=== PATIENT | female | born 1950 | race African-American/Black ===

== ENCOUNTER 2016-11-03 14:15 | Emergency (ER) | payer MEDICARE, MEDICAID ==
[~2016-11-03] VITALS: Ht 162.6 cm; Wt 68.9 kg
[2016-11-03 14:26] VITALS: BP 115/79
[2016-11-03] MEDS ORDERED: NKM (14:30)
[2016-11-03] MEDS ORDERED: Aspirin Baby 81mg ORAL ONE (14:45)
--- NOTE | 2016-11-03 14:48 | Emergency Room Report ---
History of Present Illness General Chief Complaint: Pain Source: Patient Present Illness HPI Patient is a 66-year-old female presented after increased left leg pain. Patient reported having increased pain to the left thigh. Pain is worse with movement. She denied any fever or recent trauma. She stated that she had gradual onset of symptoms over the last 3-4 days. Pain was worsened with supine position. She reported having no recent vomiting or diarrhea. She states that she is a smoker. She denied prior history of diabetes. Allergies: Coded Allergies: No Known Allergies (Unverified , 11/03/16) Patient History Reviewed Nursing Documentation: PMH: Agreed, PSxH: Agreed Nursing Documentation-PMH Past Medical History: No Stated History Physical Exam Vital Signs Date Time Temp Pulse Resp B/P Pulse Ox O2 Delivery O2 Flow Rate FiO2 11/03/16 14:26 97.7 14 115/79 99 11/03/16 14:26 94 Medical Decision Making Diagnostic Impression: Primary Impression: Anemia ER Course Patient presented for extremity pain. Differential diagnosis included but was not limited to fracture, contusion, vascular insufficiency, aortic aneurysm, cellulitis.Because of complexity of patient's case laboratory testing and imaging studies were ordered. The patient appears to have good perfusion to her extremities. Vascular ultrasound was ordered to evaluate for possible arterial insufficiencyThe arterial duplex studies showed adequate flow to both lower extremities. Patient noted to have anemia on laboratory testing. Patient was advised to take iron pills as prescribed. She is given prescription for acid blockers. Patient does not appear to have any acute bleeding at this time. Labs Test 11/03/16 14:57 11/03/16 15:05 White Blood Count 10.0 K/UL (4.8-10.8) Red Blood Count 4.12 M/UL (4.20-5.40) Hemoglobin 8.2 G/DL (12.0-16.0) Hematocrit 29.8 % (37.0-47.0) Mean Corpuscular Volume 72 FL (80-99) Mean Corpuscular Hemoglobin 20.0 PG (27.0-31.0) Mean Corpuscular Hemoglobin Concent 27.6 G/DL (32.0-36.0) Red Cell Distribution Width 18.9 % (11.6-14.8) Platelet Count 648 K/UL (150-450) Mean Platelet Volume 5.3 FL (6.5-10.1) Neutrophils (%) (Auto) 54.2 % (45.0-75.0) Lymphocytes (%) (Auto) 36.2 % (20.0-45.0) Monocytes (%) (Auto) 7.1 % (1.0-10.0) Eosinophils (%) (Auto) 1.1 % (0.0-3.0) Basophils (%) (Auto) 1.4 % (0.0-2.0) Prothrombin Time 10.2 SEC (9.30-11.50) Prothromb Time International Ratio 1.0 (0.9-1.1) Activated Partial Thromboplast Time 26 SEC (23-33) Sodium Level 137 mEQ/L (135-145) Potassium Level 3.6 mEQ/L (3.4-4.9) Chloride Level 97 mEQ/L (98-107) Carbon Dioxide Level 23 mEQ/L (20-30) Anion Gap 17 (5-15) Blood Urea Nitrogen 12 mg/dL (7-23) Creatinine 0.7 mg/dL (0.5-0.9) Estimat Glomerular Filtration Rate > 60 mL/min (>60) Glucose Level 101 mg/dL (74-106) Calcium Level 9.7 mg/dL (8.6-10.2) Total Bilirubin 0.8 mg/dL (0.0-1.2) Aspartate Amino Transf (AST/SGOT) 32 U/L (5-40) Alanine Aminotransferase (ALT/SGPT) 14 U/L (3-33) Alkaline Phosphatase 113 U/L (35-104) Total Protein 7.7 g/dL (6.6-8.7) Albumin 4.2 g/dL (3.5-5.2) Globulin 3.5 g/dL Albumin/Globulin Ratio 1.2 (1.0-2.7) Urine Color Yellow Urine Appearance Clear Urine pH 5 (4.5-8.0) Urine Specific [place] 1.020 (1.005-1.035) Urine Protein Negative (NEGATIVE) Urine Glucose (UA) Negative (NEGATIVE) Urine Ketones Negative (NEGATIVE) Urine Occult Blood 1+ (NEGATIVE) Urine Nitrite Positive (NEGATIVE) Urine Bilirubin Negative (NEGATIVE) Urine Urobilinogen Normal MG/DL (0.0-1.0) Urine Leukocyte Esterase 2+ (NEGATIVE) Urine RBC 2-4 /HPF (0 - 2) Urine WBC 5-10 /HPF (0 - 2) Urine Squamous Epithelial Cells Few /LPF (NONE/OCC) Urine Bacteria Moderate /HPF (NONE) Last Vital Signs Date Time Temp Pulse Resp B/P Pulse Ox O2 Delivery O2 Flow Rate FiO2 11/03/16 14:26 97.7 94 14 115/79 99 Status: improved Disposition: HOME, SELF-CARE Condition: Stable Scripts Famotidine (PEPCID) 20 Mg Tablet 20 MG ORAL DAILY, #7 TAB 0 Refills Prov: Donte Romo 11/03/16 Ferrous Sulfate* (FERROUS SULFATE*) 325 Mg Tablet 325 MG ORAL DAILY, #30 TAB 0 Refills Prov: Donte Romo 11/03/16 Donte Romo Nov 03, 2016 14:48
[2016-11-03 15:09] LABS: BASOPHILS % (AUTO) 1.4 % (0.0-2.0); EOSINOPHILS % (AUTO) 1.1 % (0.0-3.0); LYMPHOCYTES % (AUTO) 36.2 % (20.0-45.0); MEAN CORPUSCULAR HGB CONC 27.6 G/DL (32.0-36.0); MEAN CORPUSCULAR VOLUME 72 FL (80-99); MEAN PLATELET VOLUME 5.3 FL (6.5-10.1); MONOCYTES % (AUTO) 7.1 % (1.0-10.0); NEUTROPHILS % (AUTO) 54.2 % (45.0-75.0); PLATELET COUNT 648 K/UL (150-450); RED BLOOD COUNT 4.12 M/UL (4.20-5.40); RED CELL DISTRIBUTION WIDTH 18.9 % (11.6-14.8)
[2016-11-03 15:17] LABS: APPEARANCE,URINE CLEAR; KETONES,URINE NEGATIVE (NEGATIVE); LEUKOCYTE ESTERASE ,URINE 2+ (NEGATIVE); NITRITE,URINE POSITIVE (NEGATIVE); PH,URINE 5 (4.5-8.0); PROTEIN,URINE NEGATIVE (NEGATIVE); UROBILINOGEN,URINE NORMAL MG/DL (0.0-1.0)
[2016-11-03 15:20] LABS: PROTHROMBIN TIME 10.2 SEC (9.30-11.50)
[2016-11-03 15:25] LABS: ALANINE AMINOTRANSFERASE 14 U/L (3-33); ALBUMIN/GLOBULIN RATIO 1.2 (1.0-2.7); ANION GAP 17 (5-15); ASPARTATE AMINO TRANSFERASE 32 U/L (5-40); CALCIUM 9.7 mg/dL (8.6-10.2); CARBON DIOXIDE 23 mEQ/L (20-30); CHLORIDE 97 mEQ/L (98-107); CREATININE 0.7 mg/dL (0.5-0.9); GLOMERULAR FILTRATION RATE > 60 mL/min (>60); HEMOLYSIS 0; POTASSIUM 3.6 mEQ/L (3.4-4.9); SODIUM 137 mEQ/L (135-145); TOTAL PROTEIN 7.7 g/dL (6.6-8.7)
[2016-11-03 15:32] LABS: BACTERIA,URINE MODERATE /HPF; SQUAMOUS EPITHELIAL CELL,UR FEW /LPF (NONE/OCC)
[2016-11-03] MEDS ORDERED: FERROUS SULFAT325 MG ORAL (16:25)
[2016-11-03] MEDS ORDERED: PEPCID20 MG ORAL (16:43)
[2016-11-03 17:04] VITALS: BP 130/75
[2016-11-03 17:06] VITALS: BP 130/75
--- NOTE | 2016-11-03 23:38 | Diagnostic Imaging Report ---
APPROVED REPORT CPT Code: 53395 Symptoms Comments: Left leg pain BILATERAL: Common femoral artery waveform analysis is within normal limits at rest. Color flow duplex sonography reveals patency of the superficial femoral, popliteal, and tibial arteries, there is no evidence of stenosis or occlusion within these segments. Doppler tibial artery waveform analysis is within normal limits, bilaterally. There is no evidence of significant arterial occlusive disease, bilaterally.
[2016-11-04] MEDS ORDERED: TYLENOL EXTRA500 MG ORAL (16:09)
== END 2016-11-03 17:06 | disposition home or self-care (01) ==
LOC: EMR 14:45
DX: D64.9 Anemia, unspecified (principal); M79.662 Pain in left lower leg
CPT/HCPCS: 36415; 80053; 81001; 82962; 85025; 85610; 85730; 87086; 87181; 93925; 99284

== ENCOUNTER 2019-09-24 21:09 | Emergency (ER) | payer MEDICAID, MEDICARE, OTHER ==
[~2019-09-24] VITALS: Ht 160 cm; Wt 63.5 kg
[~2019-09-24 21:09] MED LIST: FERROUS SULFAT325 MG ORAL; NKM; PEPCID20 MG ORAL; TYLENOL EXTRA500 MG ORAL
[2019-09-24 21:20] VITALS: BP 99/67
--- NOTE | 2019-09-24 21:20 | NUR ---
ED Nurse Note: ambulated to ed c/o abnormal labs (low h&H) seen by primary md 09/23/19. nausea vomitting and general weakness.. ao4. nad. vss. amulates with steady gait. changed into gown; attached to monitor; safety measures met.
[2019-09-24] MEDS ORDERED: Pantoprazole Inj IVP ONE (21:30)
--- NOTE | 2019-09-24 21:59 | NUR ---
ED Nurse Note: iv access established. blood collected; sent down to lab. unable to collect urine at this time; pt states she will provide when able.
--- NOTE | 2019-09-24 22:06 | Emergency Room Report ---
History of Present Illness General Chief Complaint: Abnormal Labs Source: Patient Present Illness HPI Is a 69-year-old female with no significant past medical history. She does admit to drinking a bottle of wine on the weekend. She presents with chief complaint of dizziness and abnormal lab. She saw her doctor last week and had blood work done. She was called to come into the hospital because her hemoglobin was 6.3. Patient said that she felt dizzy and lightheaded when she walks. Does have nausea and vomiting when she stopped drinking. She said her stools been black. No fever or chills. Some mild abdominal pain. She was told that she has a spot on her liver but she does not remember any CAT scan or ultrasound done. Denies any other drug use. Denies suicidal thoughts or homicidal thought. Allergies: Coded Allergies: No Known Allergies (Unverified , 11/03/16) Patient History Past Medical History: see triage record, old chart reviewed Past Surgical History: other Pertinent Family History: none Social History: Reports: alcohol use; Denies: smoking Now: No Immunizations: other Reviewed Nursing Documentation: PMH: Agreed; PSxH: Agreed Review of Systems Constitutional: Reports: weakness Eye: Denies: eye pain, blurred vision ENT: Denies: ear pain, nose congestion, throat swelling Respiratory: Denies: cough, shortness of breath Cardiovascular: Denies: chest pain, palpitations Gastrointestinal: Reports: melena; Denies: abdominal pain, diarrhea, nausea, vomiting Musculoskeletal: Denies: back pain, joint pain Skin: Denies: rash Neurological: Denies: headache, numbness Endocrine: Denies: increased thirst, increased urine Hematologic/Lymphatic: Denies: easy bruising All Other Systems: negative except mentioned in HPI Physical Exam Vital Signs Date Time Temp Pulse Resp B/P (MAP) Pulse Ox O2 Delivery O2 Flow Rate FiO2 09/24/19 21:15 97.3 115 18 99/67 (78) 96 Room Air Vitals with tachycardia Sp02 EP Interpretation: reviewed, normal General Appearance: well appearing, no apparent distress, alert Head: normocephalic, atraumatic Eyes: bilateral eye PERRL, bilateral eye EOMI, bilateral eye scleral icterus ENT: hearing grossly normal, normal pharynx Neck: full range of motion, supple, no meningismus Respiratory: chest non-tender, lungs clear, normal breath sounds Cardiovascular #1: regular rate, rhythm, no murmur Gastrointestinal: normal bowel sounds, non tender, no mass, no organomegaly, no bruit, non-distended Musculoskeletal: back normal, normal range of motion, gait/station normal Neurologic: alert Psychiatric: mood/affect normal Skin: jaundice Medical Decision Making Diagnostic Impression: Primary Impression: Anemia Qualified Codes: D64.9 - Anemia, unspecified Additional Impressions: Peptic ulcer disease Alcohol abuse ER Course This patient presents with anemia secondary to bleeding ulcer. Hemoglobin is low but does not meet criteria for blood transfusion. She felt better after IV fluid. No active bleeding now. She says she does not get her withdrawal symptoms when she stopped drinking. She says she is scheduled for colonoscopy within a week already. Will discharge home. EKG Diagnostic Results Rate: normal, tachycardiac Rhythm: NSR ST Segments: no acute changes Rhythm Strip Diag. Results EP Interpretation: yes Rate: 98 Rhythm: NSR, no PVC's, no ectopy CT/MRI/US Diagnostic Results CT/MRI/US Diagnostic Results : Imaging Test Ordered: CT abdomen pelvis Impression Read by radiologist. Thickening of the gastroduodenal region. Last Vital Signs Date Time Temp Pulse Resp B/P (MAP) Pulse Ox O2 Delivery O2 Flow Rate FiO2 09/24/19 21:15 97.3 115 18 99/67 (78) 96 Room Air Status: improved Disposition: HOME, SELF-CARE Condition: Stable Scripts Ferrous Sulfate* (FERROUS SULFATE*) 325 Mg Tablet 325 MG ORAL TWICE A DAY, #60 TAB 0 Refills Prov: John Lange MD 09/24/19 Omeprazole (OMEPRAZOLE) 40 Mg Capsule.dr 40 MG ORAL TWICE A DAY, #60 CAP Prov: John Lange MD 09/24/19 Additional Instructions: Follow-up with your doctor within a week. Keep your colonoscopy appointment. You have to stop drinking. You are experiencing liver damage and ulcers from this. Return if symptoms worsen. John Lnage MD Sep 24, 2019 22:06
--- NOTE | 2019-09-24 22:08 | Diagnostic Imaging Report ---
Indication: Abdominal pain Technique: Spiral acquisitions obtained through the abdomen and pelvis. No oral contrast utilized, per emergency room physician request No IV contrast utilized, per referring physician request.. Multiplanar reconstructions were generated. Total dose length product 180 mGycm. CTDIvol(s) 3 mGy. Dose reduction achieved using automated exposure control Comparison: None Findings: There are colonic diverticula. No evidence of acute diverticulitis. The appendix is normal. There is suggestion of wall thickening of the duodenum and possibly of the distal gastric antrum. There is periduodenal adenopathy. There is inflammation of the right upper quadrant mesenteric fat and thickening of or fluid along the fascial planes. The distal esophagus is unremarkable. The small bowel is nondilated. No free intraperitoneal gas. There is a small amount of fluid within the pelvis Lack of IV contrast limits assessment of solid organs. The gallbladder is distended, contains multiple gallstones. The wall does not appear to be thickened. No biliary ductal dilatation. The pancreas contains calcifications. It is somewhat atrophic. The spleen is atrophic. The adrenals are unremarkable. The kidneys demonstrate bilateral perinephric fat stranding. No renal or ureteral calculi, hydronephrosis, or hydroureter. The uterus and adnexal structures are unremarkable. No pelvic mass or adenopathy demonstrated. The included lung bases demonstrate hyperinflation and small cystic spaces. There are atelectatic changes and/or scarring at both lung bases. The bones demonstrate degenerative spondylosis changes. There is evidence of prior right mastectomy Impression: Wall thickening of the distal gastric antrum and duodenum. Surrounding inflammatory changes. Findings may represent gastroduodenitis, peptic ulcer disease, or neoplasm. There is adjacent lymphadenopathy which could be reactive or neoplastic Free intraperitoneal fluid, not physiologic in a postmenopausal female, possibly related to the above Cholelithiasis Fatty liver Colonic diverticulosis. No evidence of diverticulitis Nonspecific bilateral perinephric fat stranding COPD changes. Pancreatic calcifications, could indicate chronic calcifying pancreatitis Other findings as noted, including prior right mastectomy, degenerative spondylosis changes, basilar atelectatic changes This agrees with the preliminary interpretation provided overnight by [employer] teleradiology service. The CT scanner at [facility] is accredited by the [employer] and the scans are performed using protocols designed to limit radiation exposure to as low as reasonably achievable to attain images of sufficient resolution adequate for diagnostic evaluation.
[2019-09-24 22:26] LABS: HEMOGLOBIN 7.5 G/DL (12.0-16.0); MEAN CORPUSCULAR VOLUME 79 FL (80-99); PLATELET COUNT 567 K/UL (150-450); RED BLOOD COUNT 3.17 M/UL (4.20-5.40); RED CELL DISTRIBUTION WIDTH 23.3 % (11.6-14.8); WHITE BLOOD COUNT 9.6 K/UL (4.8-10.8)
[2019-09-24 22:39] LABS: ANION GAP 14 mmol/L (5-15); BLOOD UREA NITROGEN 9 mg/dL (7-18); CALCIUM 8.3 MG/DL (8.5-10.1); CARBON DIOXIDE 18 MMOL/L (21-32); CHLORIDE 100 MMOL/L (98-107); CREATININE 0.9 MG/DL (0.55-1.30); POTASSIUM 4.5 MMOL/L (3.5-5.1); SODIUM 132 MMOL/L (136-145)
[2019-09-24 22:43] LABS: ALANINE AMINOTRANSFERASE 28 U/L (12-78); ALBUMIN 2.1 G/DL (3.4-5.0); ALBUMIN/GLOBULIN RATIO 0.4 (1.0-2.7); ALKALINE PHOSPHATASE 149 U/L (46-116); ASPARTATE AMINO TRANSFERASE 75 U/L (15-37); BILIRUBIN,TOTAL 0.8 MG/DL (0.2-1.0)
[2019-09-24 23:36] VITALS: BP 103/67
[2019-09-24] MEDS ORDERED: OMEPRAZOLE40 M1 ORAL (23:58)
[2019-09-24] MEDS ORDERED: FERROUS SULFAT325 MG ORAL (23:58)
[2019-09-25 00:05] VITALS: BP 103/67
--- NOTE | 2019-09-25 00:05 | NUR ---
ER DISCHARGE NOTE: Patient is cleared to be discharged per ERMD, pt is aox4, on room air, with stable vital signs. pt was given dc and prescription instructions, pt was able to verbalize understanding, pt id band and iv site removed without complications. pt is able to ambulate with steady gait. pt took all belongings.
== END 2019-09-25 00:05 | disposition home or self-care (01) ==
LOC: EMR 21:31
DX: D64.9 Anemia, unspecified (principal); K27.9 Peptic ulcer, site unspecified, unspecified as acute or chronic, without hemorrhage or perforation; F10.10 Alcohol abuse, uncomplicated; R00.0 Tachycardia, unspecified
CPT/HCPCS: 36415; 74176; 80053; 83690; 84484; 85007; 85025; 85610; 85730; 86850; 86900; 86901; 93005; 96361; 96374; 96375; 99284; C9113; J2405; J7030

== ENCOUNTER 2019-12-27 13:31 | Emergency (ER) | payer MEDICARE ==
[~2019-12-27] VITALS: Ht 167.6 cm; Wt 63.5 kg
[~2019-12-27 13:31] MED LIST changes: +OMEPRAZOLE40 M1 ORAL
[2019-12-27 14:05] VITALS: BP 115/73
[2019-12-27 14:37] LABS: HEMATOCRIT 22.6 % (37.0-47.0); MEAN CORPUSCULAR VOLUME 102 FL (80-99); PLATELET COUNT 415 K/UL (150-450); RED BLOOD COUNT 2.21 M/UL (4.20-5.40); RED CELL DISTRIBUTION WIDTH 15.5 % (11.6-14.8); WHITE BLOOD COUNT 10.1 K/UL (4.8-10.8)
[2019-12-27 14:41] LABS: HEMOGLOBIN 6.6 G/DL (12.0-16.0)
[2019-12-27 14:47] LABS: INR 1.3 (0.9-1.1)
[2019-12-27] MEDS ORDERED: unable to recall (14:54)
[2019-12-27 14:59] LABS: ANION GAP 11 mmol/L (5-15); BLOOD UREA NITROGEN 12 mg/dL (7-18); CALCIUM 7.8 MG/DL (8.5-10.1); CARBON DIOXIDE 19 MMOL/L (21-32); CHLORIDE 97 MMOL/L (98-107); CREATININE 1.4 MG/DL (0.55-1.30); POTASSIUM 4.8 MMOL/L (3.5-5.1); SODIUM 126 MMOL/L (136-145)
[2019-12-27 15:12] LABS: ALANINE AMINOTRANSFERASE 16 U/L (12-78); ALBUMIN 1.6 G/DL (3.4-5.0); ALBUMIN/GLOBULIN RATIO 0.3 (1.0-2.7); ALKALINE PHOSPHATASE 200 U/L (46-116); ASPARTATE AMINO TRANSFERASE 36 U/L (15-37); BILIRUBIN,TOTAL 1.3 MG/DL (0.2-1.0)
--- NOTE | 2019-12-27 15:21 | Emergency Room Report ---
History of Present Illness General Chief Complaint: Abnormal Labs Source: Patient Present Illness HPI 69-year-old female history of chronic anemia, alcohol abuse, peptic ulcer presented for generalized weakness. She was seen at her primary care doctor's office and had outpatient laboratory studies demonstrated a hemoglobin of 5.5. She was sent to the ER for further work-up and evaluation and possible blood transfusion. She denies any nausea or vomiting to me. She does report black stools that are chronic since taking her iron. She states she has never had a blood transfusion in the past. 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 Patient History Last Menstrual Period: 20 years agho Reviewed Nursing Documentation: PMH: Agreed; PSxH: Agreed Nursing Documentation-PM Past Medical History: No History, Except For Review of Systems All Other Systems: negative except mentioned in HPI Physical Exam Vital Signs Date Time Temp Pulse Resp B/P (MAP) Pulse Ox O2 Delivery O2 Flow Rate FiO2 12/27/19 13:34 98.2 99 18 105/70 (82) 100 Room Air Sp02 EP Interpretation: reviewed, normal General Appearance: well appearing, no apparent distress Head: normocephalic, atraumatic Eyes: bilateral eye PERRL, bilateral eye EOMI ENT: hearing grossly normal, moist mucus membranes Neck: full range of motion, supple Respiratory: lungs clear, normal breath sounds, no rhonchi, no respiratory distress, no retraction, no wheezing Cardiovascular #1: normal peripheral pulses, regular rate, rhythm, no murmur Gastrointestinal: non tender, soft, non-distended, no guarding Neurologic: alert, oriented x3, no focal defects Skin: warm/dry, pallor Procedures Critical Care Time Critical Care Time Critical care is made on the patient due to presentation with acute symptomatic anemia requiring my acute intervention. Critical care time is 35 minutes and excludes procedures. Medical Decision Making Diagnostic Impression: Primary Impression: Symptomatic anemia ER Course MDM: Differential diagnosis included but not limited to chronic anemia, symptomatic anemia, upper GI bleed, liver disease to name a few Clinical course-IV inserted, basic laboratory studies were sent, blood transfusion ordered. Hemoglobin noted to be 6.6. Patient was feeling generally weak with low normal blood pressure. I do believe patient would benefit from transfusion. Will transfuse. Labs - Laboratory Tests Test 12/27/19 14:27 White Blood Count 10.1 K/UL (4.8-10.8) Red Blood Count 2.21 M/UL (4.20-5.40) L Hemoglobin 6.6 G/DL (12.0-16.0) *L Hematocrit 22.6 % (37.0-47.0) L Mean Corpuscular Volume 102 FL (80-99) H Mean Corpuscular Hemoglobin 29.9 PG (27.0-31.0) Mean Corpuscular Hemoglobin Concent 29.4 G/DL (32.0-36.0) L Red Cell Distribution Width 15.5 % (11.6-14.8) H Platelet Count 415 K/UL (150-450) Mean Platelet Volume 5.6 FL (6.5-10.1) L Neutrophils (%) (Auto) % (45.0-75.0) Lymphocytes (%) (Auto) % (20.0-45.0) Monocytes (%) (Auto) % (1.0-10.0) Eosinophils (%) (Auto) % (0.0-3.0) Basophils (%) (Auto) % (0.0-2.0) Neutrophils % (Manual) Pending Lymphocytes % (Manual) Pending Platelet Estimate Pending Platelet Morphology Pending Prothrombin Time 13.9 SEC (9.30-11.50) H Prothrombin Time INR 1.3 (0.9-1.1) H Activated Partial Thromboplast Time 33 SEC (23-33) Sodium Level 126 MMOL/L (136-145) L Potassium Level 4.8 MMOL/L (3.5-5.1) Chloride Level 97 MMOL/L (98-107) L Carbon Dioxide Level 19 MMOL/L (21-32) L Anion Gap 11 mmol/L (5-15) Blood Urea Nitrogen 12 mg/dL (7-18) Creatinine 1.4 MG/DL (0.55-1.30) H Estimated Glomerular Filtration Rate 45.3 mL/min (>60) Glucose Level 107 MG/DL (74-106) H Calcium Level 7.8 MG/DL (8.5-10.1) L Total Bilirubin 1.3 MG/DL (0.2-1.0) H Direct Bilirubin Pending Aspartate Amino Transferase (AST) 36 U/L (15-37) Alanine Aminotransferase (ALT) 16 U/L (12-78) Alkaline Phosphatase 200 U/L (46-116) H Total Protein 6.4 G/DL (6.4-8.2) Albumin 1.6 G/DL (3.4-5.0) L Globulin 4.8 g/dL Albumin/Globulin Ratio 0.3 (1.0-2.7) L On reevaluation: Patient did feel improved after blood transfusion. Plan-due to presentation with generalized weakness symptomatic anemia patient will require admission to hospital. Due to insurance patient will be transferred to [facility]. Accepted by Dr. Burns Last Vital Signs Date Time Temp Pulse Resp B/P (MAP) Pulse Ox O2 Delivery O2 Flow Rate FiO2 12/27/19 14:05 98.2 73 16 115/73 99 Room Air Disposition: ADMITTED INPATIENT Condition: Serious Referrals: [facility],REFERRING (PCP) Duke Campbell M.D. Dec 27, 2019 15:21
[2019-12-27 15:22] LABS: BILIRUBIN,DIRECT 0.8 MG/DL (0.0-0.3)
[2019-12-27 16:59] VITALS: BP 121/67
[2019-12-27] MEDS ORDERED: SENNA8.6 M2 PO (17:23)
[2019-12-27] MEDS ORDERED: NAPROXEN CR500 MG PO (17:44)
[2019-12-27 19:01] VITALS: BP 108/67
[2019-12-27 20:00] VITALS: BP 102/71
[2019-12-27] MEDS ORDERED: HYDROcodone/Acetamin 5/325 tab ORAL ONE (20:30)
[2019-12-27 21:25] VITALS: BP 111/74
[2019-12-27 21:35] VITALS: BP 111/74
[2020-01-17] MEDS ORDERED: PANTOPRAZOLE SO40 MG ORAL (10:49)
[2020-01-17] MEDS ORDERED: LEVAQUIN500 MG ORAL (10:49)
== END 2019-12-27 21:35 | disposition other institution (70) ==
LOC: EMR 14:12 → EDBEDREQ 14:22 → EMR 21:35
DX: D64.9 Anemia, unspecified (principal)
CPT/HCPCS: 36415; 80053; 82248; 85007; 85025; 85610; 85730; 86850; 86900; 86901; 86920; 99285; P9016

== ENCOUNTER 2020-02-01 11:51 | Emergency (ER) | payer MEDICARE, OTHER ==
[~2020-02-01 11:51] MED LIST changes: +LEVAQUIN500 MG ORAL; +NAPROXEN CR500 MG PO; +PANTOPRAZOLE SO40 MG ORAL; +SENNA8.6 M2 PO; +unable to recall
[2020-02-01] MEDS ORDERED: Cefepime HCl 2 GM in D5W 55 ML IVPB ONE (13:30)
[2020-02-01] MEDS ORDERED: Vancomycin 1 GM in NS 275 ML IVPB ONE (13:30)
== END 2020-02-01 16:15 | disposition short-term general hospital (02) ==
DX: N17.9 Acute kidney failure, unspecified (principal); I10 Essential (primary) hypertension; M19.90 Unspecified osteoarthritis, unspecified site
CPT/HCPCS: 36415; 71045; 80053; 81003; 82248; 82550; 83605; 83735; 83880; 84100; 84484; 85025; 85610; 85730; 86850; 86900; 86901; 87040; 87086; 93005; 93970; 96361; 96365; 96367; 99284; J3370; J7030; J7050